=== PATIENT | female | born 1980 | race Caucasian/White ===

== ENCOUNTER → 2019-11-15 12:47 | Outpatient (CLI) | payer OTHER, SELFPAY ==
--- NOTE | ~2019-11-15 | XR_ITS ---
EXAMINATION: XR ankle LT min 3V DATE: 11/15/2019 13:07 INDICATION: Left ankle pain. TECHNIQUE: 4 views of left ankle were obtained. COMPARISON: None. FINDINGS: Bone alignment is normal. No fracture. There are 2 screws in medial malleolus. Joint spaces are well maintained. IMPRESSION: 1. No acute fracture. Reviewed, dictated and finalized at location B. IMPRESSION: 1. No acute fracture.
== END ==
PROVIDERS: PCP Physician Assistant; Visit Provider Physician Assistant
DX: M25.579 Pain in unspecified ankle and joints of unspecified foot (principal)
CPT/HCPCS: 73610

== ENCOUNTER 2023-04-04 13:12 | Outpatient (CLI) | payer BC, OTHER, SELFPAY ==
--- NOTE | 2023-04-04 14:00 | NEURO_ITS ---
Impression: # Complains of pain around elbows. # Normal Nerve Conduction Study. No Carpal Tunnel Syndrome or ulnar neuropathy. # Normal needle/EMG exam. # Clinical correlation recommended. Nerve Conduction Studies Anti Sensory Summary Table Stim Site NR Peak (ms) P-T Amp (?V) Site1 Site2 Delta-P (ms) Dist (cm) Dutch (m/s) Left Median Anti Sensory (2-3nd Digit) Wrist 2.3 92.1 Wrist 2-3nd Digit 2.3 14.0 61 Wrist 2.3 62.3 Wrist 2-3nd Digit 2.3 14.0 61 Right Median Anti Sensory (2-3nd Digit) Wrist 2.3 68.1 Wrist 2-3nd Digit 2.3 14.0 61 Wrist 2.3 75.1 Wrist 2-3nd Digit 2.3 14.0 61 Left Radial Anti Sensory (Base 1st Digit) Wrist 1.5 53.8 Wrist Base 1st Digit 1.5 0.0 Right Radial Anti Sensory (Base 1st Digit) Wrist 1.7 61.1 Wrist Base 1st Digit 1.7 0.0 Left Ulnar Anti Sensory (5th Digit) Wrist 2.0 72.7 Wrist 5th Digit 2.0 14.0 70 Right Ulnar Anti Sensory (5th Digit) Wrist 2.0 81.3 Wrist 5th Digit 2.0 14.0 70 Motor Summary Table Stim Site NR Onset (ms) O-P Amp (mV) Site1 Site2 Delta-0 (ms) Dist (cm) Dutch (m/s) Left Median Motor (Abd Poll Brev) Wrist 2.4 7.5 Elbow Wrist 4.1 26.0 63 Elbow 6.5 4.3 Right Median Motor (Abd Poll Brev) Wrist 2.6 6.7 Elbow Wrist 4.1 27.0 66 Elbow 6.7 3.8 Left Ulnar Motor (Abd Dig Minimi) Wrist 2.0 8.7 A Elbow Wrist 4.5 29.0 64 A Elbow 6.5 8.9 Right Ulnar Motor (Abd Dig Minimi) Wrist 2.0 8.7 A Elbow Wrist 4.3 27.0 63 A Elbow 6.3 8.4 F Wave Studies NR F-Lat (ms) L-R F-Lat (ms) Left Median (Mrkrs) (Abd Poll Brev) 23.45 0.46 Right Median (Mrkrs) (Abd Poll Brev) 23.91 0.46 Left Ulnar (Mrkrs) (Abd Dig Min) 24.22 0.00 Right Ulnar (Mrkrs) (Abd Dig Min) 24.22 0.00 EMG Side Muscle Nerve Root Ins Act Fibs Amp Dur Recrt Comment Right 1stDorInt Ulnar C8-T1 Nml Nml Nml Nml Nml Right Ext Indicis Radial (Post Int) C7-8 Nml Nml Nml Nml Nml Right Ext Digitorum Radial (Post Int) C7-8 Nml Nml Nml Nml Nml Right BrachioRad Radial C5-6 Nml Nml Nml Nml Nml Right PronatorTeres Median C6-7 Nml Nml Nml Nml Nml Right Abd Poll Brev Median C8-T1 Nml Nml Nml Nml Nml Left 1stDorInt Ulnar C8-T1 Nml Nml Nml Nml Nml Left Ext Indicis Radial (Post Int) C7-8 Nml Nml Nml Nml Nml Left Ext Digitorum Radial (Post Int) C7-8 Nml Nml Nml Nml Nml Left BrachioRad Radial C5-6 Nml Nml Nml Nml Nml Left PronatorTeres Median C6-7 Nml Nml Nml Nml Nml Left Abd Poll Brev Median C8-T1 Nml Nml Nml Nml Nml MTDD
== END 2023-04-04 13:13 | disposition home or self-care (01) ==
LOC: ANHNEURO 13:14
PROVIDERS: PCP Family Medicine; Visit Provider Family Medicine
DX: G56.23 Lesion of ulnar nerve, bilateral upper limbs (principal)
CPT/HCPCS: 95886; 95911

== ENCOUNTER 2023-09-27 13:33 | Outpatient (CLI) | payer BC, OTHER, SELFPAY ==
--- NOTE | ~2023-09-27 | MM_ITS ---
EXAMINATION: MM screening keven BI w faisal HISTORY: Screening mammogram TECHNIQUE: Craniocaudal and mediolateral oblique 3-D tomosynthesis images were obtained and synthetic 2-D images were generated. CAD analysis was submitted and interpreted. COMPARISON: None BREAST PARENCHYMAL COMPOSITION:Not Dense. There are scattered areas of fibroglandular density. FINDINGS: There is a 4 mm rounded asymmetry in the left subareolar region. No suspicious mass, calcif ication, or architectural distortion are identified in the right breast to suggest malignancy. No juan f picious microcalcification in the left breast. IMPRESSION: 4 mm rounded asymmetry in the left subareolar region. Spot compression views, and possibly ultrasound , are recommended for further evaluation. BI-RADS Category 0: Incomplete: Needs additional imaging evaluation. Reviewed, dictated and finalized at [facility]. IMPRESSION: 4 mm rounded asymmetry in the left subareolar region. Spot compression views, a nd possibly ultrasound, are recommended for further evaluation. BI-RADS Category 0: Incomplete: Needs additional imaging evaluation.
== END 2023-09-27 13:34 | disposition home or self-care (01) ==
PROVIDERS: PCP Family Medicine; Visit Provider Family Medicine
DX: Z12.31 Encounter for screening mammogram for malignant neoplasm of breast (principal); R92.8 Other abnormal and inconclusive findings on diagnostic imaging of breast
CPT/HCPCS: 77063; 77067

== ENCOUNTER 2023-11-10 09:34 | Outpatient (CLI) | payer BC, OTHER, SELFPAY ==
--- NOTE | ~2023-11-10 | MMUS_ITS ---
EXAMINATION: MM diagnostic keven LT w faisal, US breast LT limited HISTORY: Follow-up left breast asymmetry TECHNIQUE: Additional 3-D tomosynthesis images of left were performed and synthetic 2-D images were g enerated. CAD analysis was submitted and interpreted. High resolution Limited left breast ultrasound was performed. COMPARISON: 09/27/2023 BREAST PARENCHYMAL COMPOSITION: Not dense: There are scattered areas of fibroglandular density. FINDINGS: MAMMOGRAPHIC FINDINGS: The round asymmetry is not apparent on spot compression or mediolateral views of the left breast. The re are no discrete masses or architectural distortion. There are no suspicious calcifications or skin thickening. ULTRASOUND: Limited left breast ultrasound: In the periareolar location of the left breast there is a 3 mm round hypoechoic mass with posterior shadowing. No internal vascularity. IMPRESSION: 1. Round 3 mm hypoechoic mass with posterior shadowing in the periareolar location of the left breast . 2. Ultrasound-guided left breast biopsy recommended. BI-RADS category 4, suspicious findings. Reviewed, dictated and finalized at location B. IMPRESSION: 1. Round 3 mm hypoechoic mass with posterior shadowing in the periareolar locat ion of the left breast. 2. Ultrasound-guided left breast biopsy recommended. BI-RADS category 4, suspicious findings.
== END 2023-11-10 09:35 | disposition home or self-care (01) ==
LOC: CHSIMG 09:36
PROVIDERS: PCP Family Medicine; Visit Provider Family Medicine
DX: R92.8 Other abnormal and inconclusive findings on diagnostic imaging of breast (principal)
CPT/HCPCS: 76642; 77061; 77065; G0279

== ENCOUNTER 2023-12-06 08:50 | Outpatient (CLI) | payer BC, OTHER, SELFPAY ==
--- NOTE | ~2023-12-06 | US_ITS ---
US breast LT limited 12/06/2023 09:55 Indication: Left breast mass seen on prior examination. Biopsy requested. Procedure: High-resolution Limited ultrasound of the left breast. I was personally present during the examination. Comparison: Examination dated 11/10/2023 Findings: There is a periareolar mass with circumscribed oval configuration, low level internal echoe s, no significant posterior features or internal vascularity measuring 5 mm. This most likely represe nts a complicated cyst. Recommend short-term follow-up ultrasound in 6 months. Findings discussed wit h the patient. Impression: 1: Probable benign complicated cyst of the left breast in the periareolar location. BI-RADS CATEGORY 3-PROBABLY BENIGN FINDING RECOMMENDATION: 6 month follow-up Limited left breast ultrasound recommended. Reviewed, dictated and finalized at location B. Impression: 1: Probable benign complicated cyst of the left breast in the periareolar locat ion. BI-RADS CATEGORY 3-PROBABLY BENIGN FINDING RECOMMENDATION: 6 month follow-up Limited left breast ultrasound recommended.
== END 2023-12-06 08:51 | disposition home or self-care (01) ==
LOC: ANHIMG 08:58
PROVIDERS: PCP Family Medicine; Visit Provider Nurse Practitioner Family
DX: N63.20 Unspecified lump in the left breast, unspecified quadrant (principal); R92.8 Other abnormal and inconclusive findings on diagnostic imaging of breast
CPT/HCPCS: 76642

== ENCOUNTER 2024-11-29 09:30 | Outpatient (CLI) | payer BC, OTHER, SELFPAY ==
--- NOTE | ~2024-11-29 | XR_ITS ---
XR_[id number]_CR 11/29/2024 10:14 Indication: Radiculopathy. Procedure: 3 view cervical spine Comparison: No prior studies for comparison. Findings: Reversal of cervical lordosis centered at C4-5. Vertebral body heights are maintained. There is disc narrowing at C5-6. Odontoid process is normal. There is multilevel uncinate hypertrophy. There is dextrocurvature of the cervical spine. Impression: 1: Mild-moderate cervical spondylosis with reversal of normal cervical lordosis. Reviewed, dictated and finalized at location O. Impression: 1: Mild-moderate cervical spondylosis with reversal of normal cervical lordosis .
--- NOTE | ~2024-11-29 | XR_ITS ---
XR lumbar spine 2-3V 11/29/2024 10:14 Indication: Radiculopathy. Back pain. Procedure: 3 views lumbar spine Comparison: No prior studies for comparison. Findings: Normal lumbar lordosis. Vertebral body and disc heights are preserved. No fracture, subluxation or spondylolisthesis. Pedicles intact. Sacral foramen are symmetric. No abnormality of the transverse processes. Impression: 1: No significant abnormality of the lumbar spine. Reviewed, dictated and finalized at location O. Impression: 1: No significant abnormality of the lumbar spine.
--- NOTE | ~2024-11-29 | XR_ITS ---
EXAM/ PROCEDURE: XR hip BI 2V w AP pelvis - 11/29/2024 9:45 CDT HISTORY: 44 years old Female with M54.12 - Radiculopathy, cervical region COMPARISON: None available TECHNIQUE: Three view(s) FINDINGS/ IMPRESSION: There are no fractures or dislocations.Joint spaces are within normal limits. Reviewed, dictated and finalized at location N.
== END 2024-11-29 09:31 | disposition home or self-care (01) ==
LOC: GOSHIMG 09:31
PROVIDERS: PCP Family Medicine; Visit Provider Nurse Practitioner Family
DX: M54.12 Radiculopathy, cervical region (principal); M54.16 Radiculopathy, lumbar region; M25.552 Pain in left hip
CPT/HCPCS: 72040; 72100; 73521